=== PATIENT | female | born 1970 | race Caucasian/White ===

== ENCOUNTER 2016-12-19 17:32 | Emergency (ER) | payer OTHER ==
[2016-12-19 17:42] VITALS: BP 111/64; PULSE 108; RESP 18; TEMP 102.6; O2SAT 92
[2016-12-19] MEDS ORDERED: IBUPROFEN 600 MG TAB PO ONE (17:47)
[2016-12-19] MEDS ORDERED: IBUPROFEN 200 MG TAB PO ONE (17:51)
--- NOTE | 2016-12-19 17:58 | UCPHY ---
H & P Time Seen by Provider: 12/19/16 17:45 Patient Type: Established HPI/ROS: HPI Cough and cold symptoms. Your pain. 46-year-old female by private vehicle. She reports that she has had cold symptoms which include chest congestion, nasal congestion and a nonproductive cough since last Saturday. She reports that she is prone to ear infections in her right ear started hurting her today while she was skiing. She reports that her left ear bothersome as well. She was actually seen by her friend who is a primary care physician yesterday. She had a negative flu test at that time. She reports that she was skiing all day today in the ear pain came on this afternoon. She is concerned she may be developing an ear infection. ROS: Constitutional: She has had a fever intermittently. No weakness. Eyes: No discharge. No changes in vision. ENT: No sore throat. as above. Respiratory: As above. No shortness of breath. Cardiac: No chest pain, no palpitations. Gastrointestinal: No abdominal pain, no vomiting, no diarrhea. Musculoskeletal: No back pain. No neck pain. No myalgias or arthralgias. Skin: No rashes. Neurological: No headache. No focal weakness or altered sensation. Past medical history: non-Hodgkin's lymphoma. Social history: She is here by herself currently. Physical Exam: General Appearance: Alert, no distress. This patient is responding to questions appropriately and in full sentences. This patient appears well- hydrated and well-nourished. Eyes: Pupils equal and round no pallor or injection. No lid edema, erythema or injection. ENT, Mouth: Mucous membranes are moist. The pharyngeal tissues are unremarkable. No edema or swelling. No asymmetry suggestive of abscess. No erythema or exudates. The external auditory canals, tympanic membranes are normal bilaterally. Landmarks are clearly visible. No inflammatory changes. Respiratory: There are no retractions, lungs are clear to auscultation with good air movement bilaterally. Cardiovascular: Regular rate and rhythm. No murmur. Neurological: Motor sensory function is grossly intact. Cranial nerves are normal. Gait is normal. Skin: Warm and dry, no rashes. Musculoskeletal: Neck is supple and nontender. No significant lymphadenopathy. Extremities are symmetrical. All joints range without pain or impingement. Psychiatric: No agitation. No depression. Database: EKG: Imaging: Procedures: Emergency department course: Vital signs have been reviewed. She is febrile and tachycardic in triage. Her tachycardia has resolved on my evaluation. She was given 800 mg of ibuprofen. I do not feel she requires antibiotics at this time. I discussed supportive care as well as Tylenol and ibuprofen dosing for fever. She is in agreement with this plan. Follow-up and return to Urgent Care precautions were reviewed with her. All of her questions were answered. She was discharged home in good condition. Differential Diagnosis: The differential diagnosis on this patient includes but is not limited to viral upper respiratory infection, influenza. Otitis media, otitis externa, pneumonia , serious bacterial infection unlikely. This represents a partial list of diagnoses considered. These considerations are based on history, physical exam , past history, reassessment and diagnostic testing. Smoking Status: Never smoked Constitutional: Initial Vital Signs Temperature (C) 39.2 C H 12/19/16 17:37 Heart Rate 108 H 12/19/16 17:37 Respiratory Rate 18 12/19/16 17:37 Blood Pressure 111/64 12/19/16 17:37 O2 Sat (%) 92 12/19/16 17:37 Allergies/Adverse Reactions: No Known Allergies Allergy (Unverified 08/12/11 18:12) Home Medications: Medication Instructions Recorded Cephalexin [Keflex] 500 mg PO TID #20 cap 09/17/16 Doxycycline Hyclate [Doxycycline] 100 mg PO BID #13 cap 09/17/16 Lexapro 09/17/16 Medical Decision Making - Data Points Medications Given: Discontinued Medications Ibuprofen (Motrin) 600 mg PO EDNOW ONE Stop: 12/19/16 17:52 Last Admin: 12/19/16 17:52 Dose: 600 mg Departure - Departure Disposition: Home, Routine, Self-Care Clinical Impression: Fever, Viral infection, Upper respiratory tract infection Condition: Good Instructions: Fever in Adults (ED), Upper Respiratory Infection (ED), Viral Syndrome (ED) Additional Instructions: Read and follow provided instructions. Follow-up with your primary care physician in 1-2 days for re-evaluation. Ibuprofen dosin mg every 6 hours with meals for the next 3 days only. Tylenol dosin mg to 1 g every 6 hours over the next 2 days for fever control. Return to the emergency department for worsening ear pain, fever, cough, weakness or other serious concerns. Referrals: MELA PRIEST [Primary Care Provider] - As per Instructions - PQRS PQRS Measurement: Not applicable.
== END 2016-12-19 18:05 | disposition home or self-care (01) ==
LOC: CED 17:32
DX: J06.9 Acute upper respiratory infection, unspecified (principal); B34.9 Viral infection, unspecified; H92.01 Otalgia, right ear
CPT/HCPCS: 99214-PO; G0463-PO